=== PATIENT | female | born 1980 | race Two or more races ===

== ENCOUNTER 2018-06-16 11:12 | Outpatient (CLI) | payer OTHER ==
[~2018-06-16 11:12] MED LIST: ENALAPRIL MALE2.5 MG
== END 2018-06-16 13:00 | disposition home or self-care (01) ==
LOC: RAD 501 11:12
DX: M06.4 Inflammatory polyarthropathy (principal)

== ENCOUNTER 2022-01-30 07:59 | Outpatient (CLI) | payer OTHER | END 2022-01-30 08:05 | disposition home or self-care (01) | LOC: RAD 07:59 | PROVIDERS: ATTEND Internal Medicine Pulmonary Disease | DX: J45.41 Moderate persistent asthma with (acute) exacerbation (principal); U07.1 COVID-19 ==